=== PATIENT | female | born 1940 | race Caucasian/White ===

== ENCOUNTER 2024-11-24 13:46 | Inpatient (IN) | payer MEDICARE ==
[~2024-11-24] VITALS: Ht 154.9 cm; Wt 70.0 kg
[~2024-11-24 13:46] MED LIST: ALEN10TA27 PO; AMI200T PO; AMLO5TAB5 PO; APIX2.5T PO; ATEN50TA41 PO; CLOP-32 PO; EZET10TA6 PO; FERR324T4 PO; FURO-149 PO; IPRA3AMP9 NEB; LISI-642 PO; MULT-1085 PO; PANT40TA54 PO; POTA-207 PO; ROSU40TA PO; SPIR25TA5 PO; SUCR1TAB PO
[2024-11-24 14:35] LABS: BASOPHILS % (AUTO) 0.1 % (0-1); EOSINOPHILS % (AUTO) 0.4 % (0-6); HEMATOCRIT 23.2 % (35.0-45.0); HEMOGLOBIN 7.7 g/dl (12.0-16.0); LYMPHOCYTES # (AUTO) 1.6 X10'3 (1.1-4.8); LYMPHOCYTES % (AUTO) 18.9 % (21-51); MEAN CORPUSCULAR HEMOGLOBIN 30.1 PG (27.0-31.0); MEAN CORPUSCULAR HGB CONC 33.1 g/dL (33.0-36.5); NEUTROPHILS # (AUTO) 5.7 X10'3 (1.8-7.7); NEUTROPHILS % (AUTO) 68.6 % (42-75); PLATELET COUNT 181 X10'3 (140-440); RED BLOOD COUNT 2.55 X10'6 (4.20-5.60); RED CELL DISTRIBUTION WIDTH 20.7 % (11.5-14.5); WHITE BLOOD COUNT 8.3 X10'3 (4.5-11.0)
[2024-11-24 14:55] LABS: ALANINE AMINOTRANSFERASE 24 U/L (12-78); ALBUMIN 3.3 G/DL (3.4-5.0); ALBUMIN/GLOBULIN RATIO 1.2 (1.1-1.5); ALKALINE PHOSPHATASE 54 IU/L (46-116); ANION GAP 7 (8-16); ANISOCYTOSIS 3+; ASPARTATE AMINO TRANSFERASE 17 U/L (10-37); BILIRUBIN,TOTAL 0.7 MG/DL (0.1-1.0); BLOOD UREA NITROGEN 60 MG/DL (7-18); BUN/CREATININE RATIO 20.4 (10.0-20.0); CALCIUM 9.2 MG/DL (8.5-10.1); CHLORIDE 100 MMOL/L (99-107); CREATININE 2.94 MG/DL (0.40-0.90); GLUCOSE 111 MG/DL (70-104); PLATELET ESTIMATE NORMAL; POTASSIUM 4.9 MMOL/L (3.5-5.1); SODIUM 133 MMOL/L (135-145); TOTAL CARBON DIOXIDE 25.8 MMOL/L (24-32); eCRCL 11 ML/MIN; eGFR 15 ML/MIN
[2024-11-24 14:57] LABS: TEAR DROP CELLS FEW
[2024-11-24 14:58] LABS: ROULEAUX 1+
[2024-11-24 15:05] LABS: PRO BRAIN NATRIURETIC PEPTIDE 8786 PG/ML (0-450)
[2024-11-24] MEDS: normal saline 1000ML IV soln IVB ONE (17:16)
[2024-11-24] MEDS: ipratropium/albuterol 3ml nebule NEB ONE (17:16)
[2024-11-24 17:18] VITALS: PULSE 65; RESP 19; O2SAT 89
[2024-11-24 17:25] VITALS: PULSE 70; RESP 19; O2SAT 95
[2024-11-24] MEDS ORDERED: pantoprazole 40mg IV 80 MG in normal saline 100ml IV soln 100 ML IV ONE (17:55)
[2024-11-24] MEDS: pantoprazole 40 MG vial IV ONE (18:17)
[2024-11-24 18:27] LABS: APTT 27 SECONDS (22-32); INR 1.2 INR; PROTHROMBIN TIME 11.8 SECONDS (9.0-12.0)
[2024-11-24] MEDS ORDERED: magnesium sulf-water 4G/100mL 100 ML IV PRN (19:20)
[2024-11-24] MEDS ORDERED: acetaminophen 325mg tablet PO PRN (19:20)
[2024-11-24] MEDS ORDERED: magnesium hydroxide 30ml (MOM) UD suspension PO PRN (19:20)
[2024-11-24] MEDS ORDERED: magnesium Cl slow-release 64mg tablet PO PRN (19:20)
[2024-11-24] MEDS ORDERED: magnesium sulf-water 2g/50mL 50 ML IV PRN (19:20)
[2024-11-24] MEDS ORDERED: ondansetron/PF 4mg/2ml inj IV PRN (19:20)
[2024-11-24] MEDS ORDERED: potassium Cl 20 mEq SR tablet PO PRN ×2 (19:20)
[2024-11-24] MEDS ORDERED: potassium Cl 40MEQ/1/2NS 520ml 520 ML IV PRN (19:20)
[2024-11-24 20:47] LABS: OCCULT BLOOD STOOL POSITIVE (Neg)
[2024-11-24] MEDS: pantoprazole 40MG/NS 100ML BAG 100 ML IV SCH (21:00)
[2024-11-24 21:03] VITALS: BP 85/62; PULSE 81; RESP 34; TEMP 97.8
[2024-11-24] MEDS: normal saline 1000ml 1,000 ML IV SCH (21:07)
[2024-11-24] MEDS: docusate sod 100mg capsule PO SCH (21:07)
[2024-11-24] MEDS: K and/or MAG REPLACEMENT MC SCH (21:07)
[2024-11-24 21:15] VITALS: BP 107/45; PULSE 81; RESP 27; TEMP 97.6
[2024-11-24 21:40] VITALS: BP 134/38; PULSE 82; RESP 20; TEMP 98.4; O2SAT 92
[2024-11-24 22:43] VITALS: RESP 20; O2SAT 92
[2024-11-24] MEDS ORDERED: ipratropium/albuterol 3ml nebule NEB PRN (23:50)
[2024-11-24 23:57] LABS: HEMATOCRIT 28.3 % (35.0-45.0); HEMOGLOBIN 9.9 g/dl (12.0-16.0); MEAN CORPUSCULAR HGB CONC 34.8 g/dL (33.0-36.5); MEAN CORPUSCULAR VOLUME 89.1 FL (78-98); MEAN PLATELET VOLUME 7.9 FL (7.4-10.4); PLATELET COUNT 223 X10'3 (140-440); RED BLOOD COUNT 3.18 X10'6 (4.20-5.60); RED CELL DISTRIBUTION WIDTH 20.1 % (11.5-14.5)
[2024-11-25] VITALS (38 sets, daily range): BP systolic 73–143; BP diastolic 32–77; PULSE 66–87; RESP 15–40; TEMP 97–99.6; O2SAT 88–100
[2024-11-25 07:02] LABS: BASOPHILS % (AUTO) 0.3 % (0-1); EOSINOPHILS % (AUTO) 0.3 % (0-6); HEMATOCRIT 25.3 % (35.0-45.0); HEMOGLOBIN 8.6 g/dl (12.0-16.0); LYMPHOCYTES # (AUTO) 1.5 X10'3 (1.1-4.8); MEAN CORPUSCULAR HEMOGLOBIN 30.6 PG (27.0-31.0); MEAN CORPUSCULAR HGB CONC 33.9 g/dL (33.0-36.5); MEAN CORPUSCULAR VOLUME 90.3 FL (78-98); MEAN PLATELET VOLUME 7.9 FL (7.4-10.4); MONOCYTES % (AUTO) 9.7 % (2-12); NEUTROPHILS # (AUTO) 7.8 X10'3 (1.8-7.7); NEUTROPHILS % (AUTO) 75.7 % (42-75); PLATELET COUNT 168 X10'3 (140-440); RED CELL DISTRIBUTION WIDTH 19.8 % (11.5-14.5); WHITE BLOOD COUNT 10.4 X10'3 (4.5-11.0)
[2024-11-25 07:24] LABS: ALANINE AMINOTRANSFERASE 15 U/L (12-78); ALKALINE PHOSPHATASE 51 IU/L (46-116); ANION GAP 10 (8-16); ASPARTATE AMINO TRANSFERASE 14 U/L (10-37); BLOOD UREA NITROGEN 61 MG/DL (7-18); BUN/CREATININE RATIO 21.9 (10.0-20.0); CALCIUM 8.9 MG/DL (8.5-10.1); CHLORIDE 104 MMOL/L (99-107); CREATININE 2.79 MG/DL (0.40-0.90); GLUCOSE 114 MG/DL (70-104); MAGNESIUM 2.4 MG/DL (1.5-2.4); POTASSIUM 4.8 MMOL/L (3.5-5.1); SODIUM 136 MMOL/L (135-145); TOTAL CARBON DIOXIDE 22.5 MMOL/L (24-32); TOTAL PROTEIN 5.9 G/DL (6.4-8.2); eCRCL 11 ML/MIN; eGFR 16 ML/MIN
[2024-11-25] MEDS: normal saline 1000ml 1,000 ML IV SCH (08:00)
[2024-11-25 12:31] LABS: HEMATOCRIT 27.6 % (35.0-45.0); HEMOGLOBIN 9.2 g/dl (12.0-16.0); MEAN CORPUSCULAR HEMOGLOBIN 30.3 PG (27.0-31.0); MEAN CORPUSCULAR HGB CONC 33.2 g/dL (33.0-36.5); MEAN CORPUSCULAR VOLUME 91.4 FL (78-98); MEAN PLATELET VOLUME 7.9 FL (7.4-10.4); PLATELET COUNT 162 X10'3 (140-440); RED BLOOD COUNT 3.02 X10'6 (4.20-5.60); RED CELL DISTRIBUTION WIDTH 20.3 % (11.5-14.5); WHITE BLOOD COUNT 13.7 X10'3 (4.5-11.0)
[2024-11-25] MEDS: amLODIPine 5mg tablet PO SCH (13:39)
[2024-11-25] MEDS: atenolol 25mg tablet PO SCH (13:40)
[2024-11-25] MEDS ORDERED: LIDOcaine 2% Viscous 15ml cup ONE (15:07)
[2024-11-25] MEDS ORDERED: fentaNYL/PF 50MCG/1 ML 2ML syringe ONE (15:13)
[2024-11-25] MEDS ORDERED: MIDAZolam 1 MG/ML 5ML VIAL ONE (15:13)
[2024-11-25] MEDS ORDERED: simethicone 40mg/0.6ml oral drops 30ml ONE (15:20)
[2024-11-25] MEDS: furosemide 20 MG/2 ML vial IV ONE (16:54)
[2024-11-25 17:15] LABS: ABG BASE EXCESS -5.3 mmol/L (-2.0-3.0); ABG PCO2 (T) 27.7 mmHg (32.0-45.0); ABG PH (T) 7.432 (7.350-7.450); FCOHb 0.5 % (0.5-1.5); FMetHb 0.3 % (0.0-1.5); FO2Hb 97.2 % (94.0-98.0); MODE MASK - BIPAP; PATIENT TEMPERATURE 37.4; RESPIRATORY RATE 10 b/min; TIDAL VOLUME 520 mL; TOTAL HEMOGLOBIN 9.2 G/dl (12.0-16.0)
[2024-11-25 19:21] LABS: HEMATOCRIT 24.9 % (35.0-45.0); HEMOGLOBIN 8.3 g/dl (12.0-16.0); MEAN CORPUSCULAR HEMOGLOBIN 30.2 PG (27.0-31.0); MEAN CORPUSCULAR HGB CONC 33.5 g/dL (33.0-36.5); MEAN CORPUSCULAR VOLUME 90.3 FL (78-98); MEAN PLATELET VOLUME 7.9 FL (7.4-10.4); PLATELET COUNT 176 X10'3 (140-440); RED BLOOD COUNT 2.76 X10'6 (4.20-5.60); RED CELL DISTRIBUTION WIDTH 20.2 % (11.5-14.5); WHITE BLOOD COUNT 11.3 X10'3 (4.5-11.0)
[2024-11-25] MEDS: CefTRIAXone/D5W-Rocephin 1gm 50 ML IV SCH (23:50)
[2024-11-25 23:55] LABS: HEMOGLOBIN 7.8 g/dl (12.0-16.0); MEAN CORPUSCULAR HEMOGLOBIN 30.5 PG (27.0-31.0); MEAN CORPUSCULAR HGB CONC 33.7 g/dL (33.0-36.5); MEAN CORPUSCULAR VOLUME 90.5 FL (78-98); MEAN PLATELET VOLUME 7.9 FL (7.4-10.4); PLATELET COUNT 155 X10'3 (140-440); RED BLOOD COUNT 2.55 X10'6 (4.20-5.60); RED CELL DISTRIBUTION WIDTH 19.8 % (11.5-14.5); WHITE BLOOD COUNT 7.6 X10'3 (4.5-11.0)
[2024-11-26] VITALS (33 sets, daily range): BP systolic 85–135; BP diastolic 40–65; PULSE 63–83; RESP 15–30; TEMP 97.1–97.8; O2SAT 87–100
[2024-11-26] MEDS: azithromycin/NS 500mg/250ml 250 ML IV SCH (01:22)
[2024-11-26 06:59] LABS: BASOPHILS % (AUTO) 0.4 % (0-1); EOSINOPHILS # (AUTO) 0.3 X10'3 (0-0.9); EOSINOPHILS % (AUTO) 2.5 % (0-6); HEMATOCRIT 29.6 % (35.0-45.0); HEMOGLOBIN 9.8 g/dl (12.0-16.0); LYMPHOCYTES # (AUTO) 1.5 X10'3 (1.1-4.8); LYMPHOCYTES % (AUTO) 12.2 % (21-51); MEAN CORPUSCULAR HEMOGLOBIN 30.8 PG (27.0-31.0); MEAN CORPUSCULAR HGB CONC 33.2 g/dL (33.0-36.5); MEAN CORPUSCULAR VOLUME 92.8 FL (78-98); MEAN PLATELET VOLUME 8.1 FL (7.4-10.4); MONOCYTES # (AUTO) 1.3 X10'3 (0-0.9); MONOCYTES % (AUTO) 10.8 % (2-12); NEUTROPHILS # (AUTO) 9.1 X10'3 (1.8-7.7); NEUTROPHILS % (AUTO) 74.1 % (42-75); PLATELET COUNT 158 X10'3 (140-440); RED BLOOD COUNT 3.19 X10'6 (4.20-5.60); RED CELL DISTRIBUTION WIDTH 18.4 % (11.5-14.5); WHITE BLOOD COUNT 12.3 X10'3 (4.5-11.0)
[2024-11-26 07:16] LABS: ALANINE AMINOTRANSFERASE 11 U/L (12-78); ALBUMIN 2.9 G/DL (3.4-5.0); ALBUMIN/GLOBULIN RATIO 0.8 (1.1-1.5); ALKALINE PHOSPHATASE 52 IU/L (46-116); ANION GAP 14 (8-16); ASPARTATE AMINO TRANSFERASE 19 U/L (10-37); BILIRUBIN,TOTAL 1.4 MG/DL (0.1-1.0); BLOOD UREA NITROGEN 57 MG/DL (7-18); BUN/CREATININE RATIO 22.5 (10.0-20.0); CALCIUM 8.7 MG/DL (8.5-10.1); CHLORIDE 105 MMOL/L (99-107); CREATININE 2.53 MG/DL (0.40-0.90); GLUCOSE 92 MG/DL (70-104); MAGNESIUM 2.5 MG/DL (1.5-2.4); POTASSIUM 4.4 MMOL/L (3.5-5.1); SODIUM 140 MMOL/L (135-145); TOTAL CARBON DIOXIDE 21.3 MMOL/L (24-32); TOTAL PROTEIN 6.4 G/DL (6.4-8.2); eCRCL 12 ML/MIN; eGFR 18 ML/MIN
[2024-11-26] MEDS ORDERED: furosemide 40mg tablet PO SCH (08:00)
[2024-11-26] MEDS ORDERED: atorvastatin 20mg tablet PO SCH (08:00)
[2024-11-26] MEDS: furosemide 20 MG/2 ML vial IV SCH (09:14)
[2024-11-26] MEDS ORDERED: dextrose 50%-water 50ml dispensing syringe IV PRN ×2 (09:35→22:30)
[2024-11-26] MEDS ORDERED: glucagon, human recombinant 1mg kit SUBCUT PRN ×2 (09:35→22:30)
[2024-11-26] MEDS: dextrose 50%-water 50ml dispensing syringe IV PRN (09:47)
[2024-11-26 10:38] LABS: BILIRUBIN,URINE NEGATIVE (Neg); CLARITY,URINE CLEAR (Clear); COLOR,URINE YELLOW (Yellow); GLUCOSE, URINE NEGATIVE (Neg); KETONES,URINE NEGATIVE (Neg); LEUKOCYTE ESTERASE ,URINE NEGATIVE (Neg); NITRITES, URINE NEGATIVE (Neg); OCCULT BLOOD,URINE NEGATIVE (Neg); PROTEIN,URINE NEGATIVE (Neg); UROBILINOGEN,URINE 0.2 E.U/dL (0.2-1.0)
[2024-11-26 10:41] LABS: UA COLLECTION TYPE STRAIGHT CATH
[2024-11-26] MEDS: ipratropium/albuterol 3ml nebule NEB SCH (12:15)
[2024-11-26 12:17] LABS: HEMATOCRIT 28.6 % (35.0-45.0); HEMOGLOBIN 9.8 g/dl (12.0-16.0); MEAN CORPUSCULAR HGB CONC 34.2 g/dL (33.0-36.5); MEAN CORPUSCULAR VOLUME 90.6 FL (78-98); MEAN PLATELET VOLUME 8.4 FL (7.4-10.4); PLATELET COUNT 155 X10'3 (140-440); RED BLOOD COUNT 3.15 X10'6 (4.20-5.60); RED CELL DISTRIBUTION WIDTH 18.6 % (11.5-14.5); WHITE BLOOD COUNT 9.8 X10'3 (4.5-11.0)
[2024-11-26] MEDS: methylPREDNISolone sod succ/PF 40mg inj. IV SCH (12:56)
[2024-11-26] MEDS: DOBUTamine-DoBUTrex 500mg/D5W 250 ML IV SCH (14:55)
[2024-11-26] MEDS: furosemide 20 MG/2 ML vial IV ONE (14:56)
[2024-11-26] MEDS: pantoprazole 40 MG vial IV SCH (20:58)
[2024-11-26] MEDS ORDERED: DEXTROSE 15 GM of carb/4 tabs (each vial/BOTTLE has 4 tablets) PO PRN ×2 (22:30)
[2024-11-26] MEDS: INSULIN LISPRO 100 UNIT/ML INSULN.PEN MULTI-DOSE SQ SCH (23:34)
[2024-11-27] VITALS (28 sets, daily range): BP systolic 75–124; BP diastolic 39–82; PULSE 71–99; RESP 18–38; TEMP 97–97.8; O2SAT 92–97
[2024-11-27 00:01] LABS: HEMOGLOBIN 8.5 g/dl (12.0-16.0); MEAN CORPUSCULAR HEMOGLOBIN 31.2 PG (27.0-31.0); RED BLOOD COUNT 2.73 X10'6 (4.20-5.60); RED CELL DISTRIBUTION WIDTH 17.8 % (11.5-14.5)
[2024-11-27 00:05] LABS: HEMATOCRIT 24.7 % (35.0-45.0); MEAN CORPUSCULAR HGB CONC 34.5 g/dL (33.0-36.5); MEAN CORPUSCULAR VOLUME 90.5 FL (78-98); MEAN PLATELET VOLUME 8.1 FL (7.4-10.4); PLATELET COUNT 143 X10'3 (140-440); WHITE BLOOD COUNT 4.5 X10'3 (4.5-11.0)
[2024-11-27 04:37] LABS: BASOPHILS % (AUTO) 0.1 % (0-1); EOSINOPHILS % (AUTO) 0 % (0-6); HEMATOCRIT 23.8 % (35.0-45.0); HEMOGLOBIN 8.1 g/dl (12.0-16.0); LYMPHOCYTES # (AUTO) 0.4 X10'3 (1.1-4.8); LYMPHOCYTES % (AUTO) 9.9 % (21-51); MEAN CORPUSCULAR HEMOGLOBIN 31.1 PG (27.0-31.0); MEAN CORPUSCULAR HGB CONC 33.9 g/dL (33.0-36.5); MEAN CORPUSCULAR VOLUME 91.7 FL (78-98); MEAN PLATELET VOLUME 8.2 FL (7.4-10.4); MONOCYTES # (AUTO) 0.1 X10'3 (0-0.9); MONOCYTES % (AUTO) 2.7 % (2-12); NEUTROPHILS # (AUTO) 3.5 X10'3 (1.8-7.7); NEUTROPHILS % (AUTO) 87.3 % (42-75); PLATELET COUNT 132 X10'3 (140-440); RED CELL DISTRIBUTION WIDTH 17.9 % (11.5-14.5); WHITE BLOOD COUNT 4.1 X10'3 (4.5-11.0)
[2024-11-27 04:46] LABS: ALANINE AMINOTRANSFERASE 16 U/L (12-78); ALBUMIN 2.6 G/DL (3.4-5.0); ALBUMIN/GLOBULIN RATIO 0.9 (1.1-1.5); ALKALINE PHOSPHATASE 46 IU/L (46-116); ANION GAP 11 (8-16); ASPARTATE AMINO TRANSFERASE 13 U/L (10-37); BILIRUBIN,TOTAL 0.7 MG/DL (0.1-1.0); BLOOD UREA NITROGEN 55 MG/DL (7-18); CALCIUM 8.3 MG/DL (8.5-10.1); CHLORIDE 109 MMOL/L (99-107); GLUCOSE 185 MG/DL (70-104); MAGNESIUM 2.1 MG/DL (1.5-2.4); POTASSIUM 4.1 MMOL/L (3.5-5.1); SODIUM 141 MMOL/L (135-145); TOTAL PROTEIN 5.5 G/DL (6.4-8.2); eCRCL 12 ML/MIN; eGFR 18 ML/MIN
[2024-11-27] MEDS: normal saline 500ml IV soln 500 ML IV SCH (05:09)
[2024-11-27] MEDS: normal saline 500ml IV soln 500 ML IV ONE (05:44)
[2024-11-27] MEDS: furosemide 20 MG/2 ML vial IV SCH (08:51)
[2024-11-27] MEDS: DOBUTamine-DoBUTrex 500mg/D5W 250 ML IV SCH (11:16)
[2024-11-28] VITALS (27 sets, daily range): BP systolic 81–156; BP diastolic 40–91; PULSE 79–98; RESP 0–27; TEMP 97.2–98.1; O2SAT 83–98
[2024-11-28 06:06] LABS: EOSINOPHILS % (AUTO) 0.2 % (0-6); HEMOGLOBIN 8.1 g/dl (12.0-16.0); LYMPHOCYTES # (AUTO) 0.3 X10'3 (1.1-4.8); MONOCYTES # (AUTO) 0.3 X10'3 (0-0.9)
[2024-11-28 06:08] LABS: BASOPHILS % (AUTO) 0.4 % (0-1); HEMATOCRIT 24.1 % (35.0-45.0); LYMPHOCYTES % (AUTO) 3.8 % (21-51); MEAN CORPUSCULAR HEMOGLOBIN 30.5 PG (27.0-31.0); MEAN CORPUSCULAR HGB CONC 33.5 g/dL (33.0-36.5); MEAN CORPUSCULAR VOLUME 91.1 FL (78-98); MEAN PLATELET VOLUME 8.8 FL (7.4-10.4); MONOCYTES % (AUTO) 3.7 % (2-12); NEUTROPHILS # (AUTO) 7.9 X10'3 (1.8-7.7); NEUTROPHILS % (AUTO) 91.9 % (42-75); PLATELET COUNT 192 X10'3 (140-440); RED BLOOD COUNT 2.64 X10'6 (4.20-5.60); RED CELL DISTRIBUTION WIDTH 17.8 % (11.5-14.5); WHITE BLOOD COUNT 8.6 X10'3 (4.5-11.0)
[2024-11-28 06:26] LABS: ALANINE AMINOTRANSFERASE 19 U/L (12-78); ALBUMIN 2.8 G/DL (3.4-5.0); ALKALINE PHOSPHATASE 42 IU/L (46-116); ANION GAP 13 (8-16); ASPARTATE AMINO TRANSFERASE 18 U/L (10-37); BILIRUBIN,TOTAL 0.5 MG/DL (0.1-1.0); BLOOD UREA NITROGEN 53 MG/DL (7-18); BUN/CREATININE RATIO 21.2 (10.0-20.0); CALCIUM 8.1 MG/DL (8.5-10.1); CHLORIDE 105 MMOL/L (99-107); GLUCOSE 183 MG/DL (70-104); MAGNESIUM 2.1 MG/DL (1.5-2.4); SODIUM 138 MMOL/L (135-145); TOTAL PROTEIN 5.5 G/DL (6.4-8.2); eCRCL 12 ML/MIN; eGFR 18 ML/MIN
[2024-11-28] MEDS: furosemide 40mg/4ml inj IV SCH (07:27)
[2024-11-28] MEDS: DOBUTamine-DoBUTrex 500mg/D5W 250 ML IV SCH (14:47)
[2024-11-29] VITALS (14 sets, daily range): BP systolic 94–173; BP diastolic 37–82; PULSE 58–96; RESP 0–28; TEMP 97.1–97.7; O2SAT 90–97
[2024-11-29 06:45] LABS: BASOPHILS % (AUTO) 0 % (0-1); EOSINOPHILS % (AUTO) 0 % (0-6); HEMATOCRIT 24.4 % (35.0-45.0); HEMOGLOBIN 8.1 g/dl (12.0-16.0); LYMPHOCYTES # (AUTO) 0.3 X10'3 (1.1-4.8); LYMPHOCYTES % (AUTO) 3.7 % (21-51); MEAN CORPUSCULAR HEMOGLOBIN 30.5 PG (27.0-31.0); MEAN CORPUSCULAR HGB CONC 33.4 g/dL (33.0-36.5); MEAN CORPUSCULAR VOLUME 91.1 FL (78-98); MEAN PLATELET VOLUME 8.5 FL (7.4-10.4); MONOCYTES # (AUTO) 0.2 X10'3 (0-0.9); MONOCYTES % (AUTO) 3.5 % (2-12); NEUTROPHILS # (AUTO) 6.4 X10'3 (1.8-7.7); NEUTROPHILS % (AUTO) 92.8 % (42-75); PLATELET COUNT 163 X10'3 (140-440); RED BLOOD COUNT 2.68 X10'6 (4.20-5.60); RED CELL DISTRIBUTION WIDTH 17.4 % (11.5-14.5); WHITE BLOOD COUNT 6.9 X10'3 (4.5-11.0)
[2024-11-29 07:16] LABS: ALANINE AMINOTRANSFERASE 21 U/L (12-78); ALBUMIN 2.9 G/DL (3.4-5.0); ALBUMIN/GLOBULIN RATIO 1.1 (1.1-1.5); ALKALINE PHOSPHATASE 43 IU/L (46-116); ANION GAP 15 (8-16); ASPARTATE AMINO TRANSFERASE 11 U/L (10-37); BILIRUBIN,TOTAL 0.3 MG/DL (0.1-1.0); BLOOD UREA NITROGEN 52 MG/DL (7-18); BUN/CREATININE RATIO 20.9 (10.0-20.0); CALCIUM 8.1 MG/DL (8.5-10.1); CHLORIDE 104 MMOL/L (99-107); CREATININE 2.49 MG/DL (0.40-0.90); GLUCOSE 158 MG/DL (70-104); SODIUM 138 MMOL/L (135-145); TOTAL CARBON DIOXIDE 19.3 MMOL/L (24-32); TOTAL PROTEIN 5.6 G/DL (6.4-8.2); eCRCL 12 ML/MIN; eGFR 18 ML/MIN
[2024-11-29 08:25] LABS: CHOL/HDL RATIO 2.1 (0.00-4.99); CHOLESTEROL 131 MG/DL (0-200); HDL CHOLESTEROL 61 MG/DL (35-60); LDL CHOLESTEROL 51 MG/DL (50-100); TRIGLYCERIDES 79 MG/DL (20-135)
[2024-11-29] MEDS ORDERED: ferrous sulfate 325mg tablet PO SCH (17:30)
[2024-11-30] MEDS ORDERED: PRED20TA PO (03:59)
== END 2024-11-29 15:06 | DRG 377 ==
LOC: ER 13:46 → ED HOLD 18:20 → PCU 3S 21:40
PROVIDERS: ADMIT Family Medicine; ATTEND Family Medicine
PROC: 30233N1 Transfusion of Nonautologous Red Blood Cells into Peripheral Vein, Percutaneous Approach (ICD-10-PCS; principal; 2024-11-24)
PROC: 0W3P8ZZ Control Bleeding in Gastrointestinal Tract, Via Natural or Artificial Opening Endoscopic (ICD-10-PCS; 2024-11-25)
PROC: XW0G886 Introduction of Mineral-based Topical Hemostatic Agent into Upper GI, Via Natural or Artificial Opening Endoscopic, New Technology Group 6 (ICD-10-PCS; 2024-11-25)
PROC: 5A0935A Assistance with Respiratory Ventilation, Less than 24 Consecutive Hours, High Flow/Velocity Cannula (ICD-10-PCS; 2024-11-25)
PROC: 5A09357 Assistance with Respiratory Ventilation, Less than 24 Consecutive Hours, Continuous Positive Airway Pressure (ICD-10-PCS; 2024-11-25)
PROC: 5A0935A Assistance with Respiratory Ventilation, Less than 24 Consecutive Hours, High Flow/Velocity Cannula (ICD-10-PCS; 2024-11-26)
PROC: 5A09357 Assistance with Respiratory Ventilation, Less than 24 Consecutive Hours, Continuous Positive Airway Pressure (ICD-10-PCS; 2024-11-26)
PROC: 5A0935A Assistance with Respiratory Ventilation, Less than 24 Consecutive Hours, High Flow/Velocity Cannula (ICD-10-PCS; 2024-11-27)
PROC: 5A0935A Assistance with Respiratory Ventilation, Less than 24 Consecutive Hours, High Flow/Velocity Cannula (ICD-10-PCS; 2024-11-28)
DX: K25.4 Chronic or unspecified gastric ulcer with hemorrhage (principal); I50.33 Acute on chronic diastolic (congestive) heart failure; J18.9 Pneumonia, unspecified organism; J96.00 Acute respiratory failure, unspecified whether with hypoxia or hypercapnia; N17.9 Acute kidney failure, unspecified; N18.4 Chronic kidney disease, stage 4 (severe); I13.0 Hypertensive heart and chronic kidney disease with heart failure and stage 1 through stage 4 chronic kidney disease, or unspecified chronic kidney disease; I27.20 Pulmonary hypertension, unspecified; I25.10 Atherosclerotic heart disease of native coronary artery without angina pectoris; Z96.653 Presence of artificial knee joint, bilateral; I48.0 Paroxysmal atrial fibrillation; I08.3 Combined rheumatic disorders of mitral, aortic and tricuspid valves; E78.5 Hyperlipidemia, unspecified; T50.995A Adverse effect of other drugs, medicaments and biological substances, initial encounter; D64.9 Anemia, unspecified; K44.9 Diaphragmatic hernia without obstruction or gangrene; K21.00 Gastro-esophageal reflux disease with esophagitis, without bleeding; Z79.01 Long term (current) use of anticoagulants; Z79.899 Other long term (current) drug therapy; Y92.89 Other specified places as the place of occurrence of the external cause
CPT/HCPCS: 36415; 36430; 36600; 43255; 71045; 80053; 80061; 81003; 82272; 82803; 82948; 83605; 83735; 83880; 84145; 84484; 85008; 85018; 85025; 85027; 85610; 85730; 86885; 86900; 86901; 86920; 87040; 87081; 93005; 93970; 94640; 94660; 94760; 96361; 96374; 97116; 97161; 97530; 99152; 99291; A4615; C1052; C1758; G0378; J0456; J0696; J1250; J1815; J1938; J1940; J2250; J2470; J2919; J3010; J3490; J7030; J7040; P9016

== ENCOUNTER 2025-06-27 15:26 | Emergency (ER) | payer MEDICARE ==
[~2025-06-27] VITALS: Ht 154.9 cm; Wt 62.0 kg
[~2025-06-27 15:26] MED LIST changes: -AMI200T PO; -AMLO5TAB5 PO; -APIX2.5T PO; -ATEN50TA41 PO; -CLOP-32 PO; +COR3.125T PO; -EZET10TA6 PO; +POTA-205 PO; -SPIR25TA5 PO
[2025-06-27 15:32] VITALS: TEMP 97.7
--- NOTE | 2025-06-27 15:42 | ELECTROCARDIOGRAPH REPORT ---
[facility] Test Date: 2025-06-27 Test Time: 15:39:01 Pat Name: BECKA FERREIRA Department: [facility]- Patient ID: [id number] Room: Gender: F Pelts Skinner: : 1940 Requested By: CLAY EDMOND Order Number: [id number] Reading MD: Dr. Clay Edmond Measurements Intervals [place] Rate: 64 P: 82 [place]: 179 QRS: 51 QRSD: 174 T: 78 QT: 432 QTc: 446 Interpretive Statements Sinus rhythm Atrial premature complexes Nonspecific intraventricular conduction delay Anteroseptal infarct, old Baseline wander in lead(s) V6 Electronically Signed On 06-27-2025 17:15:[address] Clay Edmond Please click the below link to view image of tracing.
[2025-06-27 15:54] LABS: MEAN PLATELET VOLUME 9.0 FL (7.4-10.4); RED CELL DISTRIBUTION WIDTH 15.5 % (11.5-14.5)
[2025-06-27 16:14] LABS: CREATININE 2.32 MG/DL (0.40-0.90); PRO BRAIN NATRIURETIC PEPTIDE 1317 PG/ML (0-450); TOTAL CARBON DIOXIDE 29.0 MMOL/L (24-32); eCRCL 13 ML/MIN; eGFR 20 ML/MIN
--- NOTE | 2025-06-27 17:21 | RADIOLOGY REPORT ---
CT CT HEAD [facility] DATE: 06/27/2025 04:50 PM COMPARISON: CT CT HEAD on DOS: 11/27/23 TECHNIQUE: CT of the head without intravenous contrast. RADIATION DOSE: CTDIvol: 57 mGy, DLP: 1074 mGy*cm FINDINGS: There is no intracranial hemorrhage. There is no extra-axial fluid, mass, mass effect or midline shift. The ventricles are midline and normal in size. Basilar cisterns are patent. There is gjbe-we-aurrzuba periventricular and subcortical white matter chronic microvascular ischemic changes. Mild global cerebral volume loss. Right frontal scalp hematoma. The paranasal sinuses and mastoids are well-pneumatized. Imaged portion of the orbits are unremarkable. IMPRESSION: No intracranial hemorrhage or mass effect. Flxi-yo-qfuzuhfr chronic microvascular ischemic changes. Mild global cerebral volume loss. Right frontal scalp hematoma.
--- NOTE | 2025-06-27 17:35 | RADIOLOGY REPORT ---
[facility]: CT axial images of the cervical spine, facial bones are obtained without contrast. Coronal and sagittal reformats were obtained. Radiation Dose Information: CTDI volume is 21 mGy. Dose-length product is 441 mGy*cm Comparison: None FINDINGS: The cervical vertebral body heights are maintained. Straightening of normal cervical spine curvature. 3 mm anterolisthesis C3 upon C4.3 mm anterolisthesis C6 upon C7.3 mm anterolisthesis C7 upon T1.. There is severe multilevel disc space narrowing. No prevertebral edema. Facet articulations demonstrate moderate to severe facet hypertrophic changes. The atlantooccipital, atlantoaxial articulations are intact. Pulmonary emphysematous changes. 6 mm left upper lobe pulmonary solid nodule. Carotid atherosclerotic disease. Subcentimeter bilateral thyroid nodules. Mastoids well pneumatized. Paranasal sinuses well pneumatized. No facial region fracture identified. Frontal scalp/ right supraorbital hematoma. No retrobulbar hematoma. IMPRESSION: Severe cervical degenerative disc disease. Moderate to severe cervical facet hypertrophic changes 6 mm left upper lobe pulmonary solid nodule. Recommend follow-up per Fleischner society criteria. Right frontal scalp/ right supraorbital hematoma. No facial region Fracture identified.
--- NOTE | 2025-06-27 18:15 | Physician Documentation ---
History of Present Illness ~ Chief Complaint: Mechanical Fall Stated Complaint: FALL Time Seen by MD: 16:08 Mode of Arrival: EMS, Stretcher HPI 82-year-old female brought to the emergency department status post mechanical fall without loss of consciousness yet striking her head and face. Believes patient tripped over her oxygen cord. There was no loss of consciousness and there has been no nausea or vomiting or blurred vision. She suffered bruising to the right forehead and to the right eye. She does wear glasses however did not cause lacerations. Secondary complaints of right shoulder and left knee pain. She is accompanied in the Emergency Department by family. Tetanus within 5 Years?: No Medication Reconciliation Allergies: Coded Allergies: gluten (Verified Allergy, Unknown, 06/27/25) Celiac disease Scheduled Alendronate Sodium (Alendronate Sodium), 1 TAB PO DAILY, (Reported) Carvedilol (Carvedilol), 1 TAB PO Q12H Ferrous Sulfate (Ferrous Sulfate), 1 TAB PO DAILY Furosemide (Lasix), 1 TAB PO DAILY, (Reported) Lisinopril* (Zestril*), 1 TAB PO DAILY, (Reported) Multivitamin (Multi Vitamin Daily), 1 TAB PO DAILY, (Reported) Pantoprazole Sodium (Pantoprazole Sodium), 40 MG PO BID Potassium Chloride (Potassium Chloride), 1 TAB PO DAILY Potassium Chloride* (K-Dur*), 1 TAB PO DAILY Rosuvastatin Calcium* (Crestor*), 1 TAB PO DAILY, (Reported) Sucralfate (Sucralfate), 1 TAB PO Q8H Scheduled PRN Ipratropium/Albuterol Sulfate (IPRAT-ALBUT 0.5-3(2.5) MG/3 ML nebule), 3 ML NEB Q4H PRN for SOB or wheezing Past Medical History Past Medical History: Atrial Fibrillation, Congestive Heart Failure Past Surgical History: no surgical history Patient History: FH: heart disease Alcohol Use: None Drug Use: none Lives In: SNF Review of Systems All Other Systems at this time: Reviewed and Negative Eyes: Reports: see HPI Musculoskeletal: Reports: see HPI Physical Exam Vital Signs: RN Vital Signs have been reviewed: Yes, Temperature: 97.7, Source: Oral, Heart Rate: 68, Respiratory Rate: 16, BP: 118/55, Pulse Oximetry: 96, Weight: 62.000 Oxygen Flow Rate: 0 General Appearance: alert, WD/WN, mild distress Head: ecchymosis (Right forehead right superior lateral and inferior orbit) Face: normal (No crepitus or subcutaneous air) Eye Lid: normal inspection Pupils/EOM/Fundus: PERRLA Ears: normal inspection Nose: normal inspection Mouth: normal inspection Neck: tenderness (Bilateral paraspinous muscles); No: spinous processes tender, tender midline Respiratory: normal breath sounds Chest: non-tender Cardiovascular: normal peripheral pulses Gastrointestinal: non-tender Pelvis: normal Skin: warm/dry, other (Ecchymosis to right forehead right eye right shoulder and left knee) Neurologic: oriented x4, fleet manager/dispatch II-XII nml as tested Motor / Sensory: no motor deficit, no sensory deficit Cerebellar function exam: normal Thoughts/Hallucinations: normal thought pattern Affect: appropriate Progress Results/Orders Results/Orders Orders - HEATH BRUCE PAC Ct Head (06/27/25 17:08) Ct Cervical Spine (06/27/25 17:08) Ct Facial Bones/Soft Tissue (06/27/25 17:08) Shoulder, Complete (Min 2 Vws) (06/27/25 17:20) Knee Limited (Ap/Lat) (06/27/25 17:20) Completed Orders - HEATH BRUCE PAC Ct Head (06/27/25 17:08) Ct Cervical Spine (06/27/25 17:08) Ct Facial Bones/Soft Tissue (06/27/25 17:08) Shoulder, Complete (Min 2 Vws) (06/27/25 17:20) Knee Limited (Ap/Lat) (06/27/25 17:20) Vital Signs 06/27/25 06/27/25 06/27/25 06/27/25 15:32 15:36 15:44 16:37 Temp 97.7 Pulse 73 68 65 Resp 16 16 16 16 B/P (MAP) 95/48 100/69 (79) 105/47 (66) Pulse Ox 96 95 96 O2 Flow Rate 0 0 0 06/27/25 06/27/25 17:54 18:50 Pulse 68 67 Resp 16 17 B/P (MAP) 118/55 (76) 121/59 (79) Pulse Ox 96 95 O2 Flow Rate 0 0 Laboratory Tests Test 06/27/25 15:47 06/27/25 17:30 White Blood Count 9.0 Red Blood Count 3.90 L Hemoglobin 11.1 L Hematocrit 33.0 L Mean Corpuscular Volume 84.5 Mean Corpuscular Hemoglobin 28.5 Mean Corpuscular Hemoglobin Concent 33.7 Red Cell Distribution Width 15.5 H Platelet Count 171 Mean Platelet Volume 9.0 Neutrophils (%) (Auto) 76.7 H Lymphocytes (%) (Auto) 15.1 L Monocytes (%) (Auto) 6.0 Eosinophils (%) (Auto) 2.1 Basophils (%) (Auto) 0.1 Neutrophils # (Auto) 6.9 Lymphocytes # (Auto) 1.4 Monocytes # (Auto) 0.5 Eosinophils # (Auto) 0.2 Basophils # (Auto) 0.0 CBC Comment Sodium Level 141 Potassium Level 4.1 Chloride Level 103 Carbon Dioxide Level 29.0 Anion Gap 9 Blood Urea Nitrogen 56 H Creatinine 2.32 H Estimated GFR/1.73 m2 20 BUN/Creatinine Ratio 24.1 H Glucose Level 203 H Calcium Level 9.0 Troponin I High Sensitivity 12 12 Pro-B-Type Natriuretic Peptide 1317 H Albumin 3.9 Chemistry Comments Troponin I High Sens Percent Delta 0 Troponin I Hi Sens Absolute Change 0 Medical Decision Making Additional information obtaine: family Findings 82-year-old female who used to be on Plavix some five months ago has a had a mechanical fall with head strike. Patient initially appears non concussed. She warrants CT imaging and x-ray imaging. CT imaging of the obtained resulted by radiologist. CT imaging reassuring. X-ray imaging without acute fracture or dislocation right shoulder and left knee. Discussed with the family aftercare treatment plan. Patient's to client and needing pain management at this point. She has been assessed several times remains neurovascularly intact without focal neuro deficits. She remains not concussed. Ecchymosis to the right forehead in the right eye, right shoulder and left knee prominent. Differential Dx:Considerations: Include: Closed head injury, Cardiac injury, Fracture(s), Intraabdominal injury, Pneumothorax, Cerebral contusion, Pulmonary contusion, Spine injury, Tracheal injury, Urological injury, Vascular injury, Abrasion(s), Contusion(s), Foreign body(s), Hematoma(s), Laceration(s), Encephalopathy, Other Departure Disposition: HOME / SELF CARE / HOMELESS Impression: Primary Impression: Closed head injury Qualified Codes: S09.90XA - Unspecified injury of head, initial encounter Additional Impressions: Facial trauma Qualified Codes: S09.93XA - Unspecified injury of face, initial encounter Shoulder injury Qualified Codes: S49.91XA - Unspecified injury of right shoulder and upper arm, initial encounter Condition: Improved Discharge Instructions: Fall Prevention in the Home, Adult, [id number] Additional Instructions: Today in the emergency department you had X-rays and CTs obtained which are reassuring. Please take Tylenol for discomfort. Make follow up appointment with the primary care physician and/or return to the emergency department as needed. Please enjoy Thanksgiving. Referrals: NO PRIMARY CARE PROVIDER (PCP) Education Educated: Patient Educated regarding: diagnosis, treatment, prognosis, need for follow up Signature Scribe Signature: . Attestation: . HEATH BRUCE PAC Jun 27, 2025 18:14
--- NOTE | 2025-06-27 18:17 | RADIOLOGY REPORT ---
CHEST RADIOGRAPH Indication: CP Technique: DI CHEST,SINGLE VIEW Comparison: None FINDINGS: The cardiac silhouette is unremarkable. The lungs demonstrate right lower lobe opacity measuring 2 cm. The pulmonary vasculature is unremarkable. There is no pleural effusion. There is no pneumothorax. Aortic atherosclerotic disease. IMPRESSION: 2 cm right lower lobe opacity. Recommend CT chest to further characterize.
--- NOTE | 2025-06-27 18:22 | RADIOLOGY REPORT ---
Indication: Fall LEFT Technique: DI KNEE LIMITED (AP/LAT)KNEE LTD Comparison: None FINDINGS/IMPRESSION: No radiographic evidence for acute fracture or dislocation. Left knee arthroplasty hardware and left femur intramedullary mary. No periprosthetic fracture is identified. No perihardware lucency seen within the visualized portion of the knee hardware components Small suprapatellar effusion. Prepatellar edema.
--- NOTE | 2025-06-27 18:23 | RADIOLOGY REPORT ---
Indication: Fall RIGHT Technique: DI SHOULDER, COMPLETE (MIN 2 VWS)SHOULDERCM Comparison: None FINDINGS/IMPRESSION: No radiographic evidence for acute fracture or dislocation. Narrowing of the subacromial interval which can be seen with impingement. Kkis-gn-kfxeulln degenerate changes of the right glenohumeral joint. Eeto-kh-jjofgezm degenerate changes right acromioclavicular joint. Calcific tendinosis Atherosclerotic calcification disease.
[2025-06-27 18:50] VITALS: BP 121/59; PULSE 67; RESP 17; O2SAT 95
== END 2025-06-27 18:48 | disposition home or self-care (01) ==
LOC: ER 15:27
DX: S05.11XA Contusion of eyeball and orbital tissues, right eye, initial encounter (principal); S49.91XA Unspecified injury of right shoulder and upper arm, initial encounter; I48.91 Unspecified atrial fibrillation; I25.2 Old myocardial infarction; I50.9 Heart failure, unspecified; Z88.8 Allergy status to other drugs, medicaments and biological substances; Z79.899 Other long term (current) drug therapy; W18.39XA Other fall on same level, initial encounter; Y93.89 Activity, other specified; Y92.89 Other specified places as the place of occurrence of the external cause; Y99.8 Other external cause status
CPT/HCPCS: 36415; 70450; 70486; 71045; 72125; 73030; 73560; 80048; 83880; 84484; 85025; 93005; 99285

== ENCOUNTER 2025-06-29 13:28 | Emergency (ER) | payer MEDICARE ==
[~2025-06-29] VITALS: Ht 154.9 cm; Wt 59.1 kg
[2025-06-29 13:32] VITALS: TEMP 97.6
[2025-06-29 14:14] LABS: MEAN PLATELET VOLUME 9.4 FL (7.4-10.4); RED CELL DISTRIBUTION WIDTH 15.7 % (11.5-14.5)
[2025-06-29 14:19] LABS: APTT 23 SECONDS (22-32); INR 1.0 INR
--- NOTE | 2025-06-29 14:19 | RADIOLOGY REPORT ---
CHEST RADIOGRAPH Indication: CP Technique: Single frontal view of the chest was obtained Comparison: DI CHEST,SINGLE VIEW on DOS: 06/27/25, DI CHEST,SINGLE VIEW on DOS: 11/29/24, DI CHEST,SINGLE VIEW on DOS: 11/26/24 FINDINGS: Lines and Tubes: None Lungs: No focal consolidation. Mild hyperinflation of the lungs. Mild interstitial prominence. Pleura: No effusion. No pneumothorax. Cardiomediastinal contours: Heart size is within normal limits [id number] atherosclerotic calcification and uncoiling of the aorta. Bones: No acute osseous abnormality. IMPRESSION: Hyperinflation of the lungs with mild interstitial prominence which may be from Senescent changes /emphysema.
[2025-06-29 14:27] LABS: CREATININE 2.39 MG/DL (0.40-0.90); PRO BRAIN NATRIURETIC PEPTIDE 1231 PG/ML (0-450); TOTAL CARBON DIOXIDE 27.5 MMOL/L (24-32); eCRCL 13 ML/MIN; eGFR 19 ML/MIN
--- NOTE | 2025-06-29 14:36 | Physician Documentation ---
History of Present Illness ~ Chief Complaint: Dizziness Stated Complaint: DIZZY Time Seen by MD: 13:40 Mode of Arrival: EMS HPI 85 year old female presented to the ED via EMS for concerns of dizziness and lightheadedness. She states that he has been dizzy, wobbly when she was sitting in the chair. She got up this morning, showered, got dressed and then was sitting in her chair when she started having the above symptoms. Denies loss of consciousness, denies nausea, vomiting, diarrhea or constipation. Does not have any symptoms of UTI. States that couple of weeks ago she had a similar episode. Blood pressure of the right arm is 155/58 on the left is 113/43. She uses a cane for walking. Couple of days ago she had a mechanical fall and had a bruise on the right eye. Does not use any blood pressure medications at home. Employee Communications Coordinator is Dr. Ramos. Medication Reconciliation Allergies: Coded Allergies: gluten (Verified Allergy, Unknown, 06/29/25) Celiac disease Scheduled Alendronate Sodium (Alendronate Sodium), 1 TAB PO DAILY, (Reported) Carvedilol (Carvedilol), 1 TAB PO Q12H Ferrous Sulfate (Ferrous Sulfate), 1 TAB PO DAILY Furosemide (Lasix), 1 TAB PO DAILY, (Reported) Lisinopril* (Zestril*), 1 TAB PO DAILY, (Reported) Multivitamin (Multi Vitamin Daily), 1 TAB PO DAILY, (Reported) Pantoprazole Sodium (Pantoprazole Sodium), 40 MG PO BID Potassium Chloride (Potassium Chloride), 1 TAB PO DAILY Potassium Chloride* (K-Dur*), 1 TAB PO DAILY Rosuvastatin Calcium* (Crestor*), 1 TAB PO DAILY, (Reported) Sucralfate (Sucralfate), 1 TAB PO Q8H Scheduled PRN Ipratropium/Albuterol Sulfate (IPRAT-ALBUT 0.5-3(2.5) MG/3 ML nebule), 3 ML NEB Q4H PRN for SOB or wheezing Past Medical History Past Medical History: Atrial Fibrillation, Congestive Heart Failure Past Surgical History: no surgical history Patient History: FH: heart disease Alcohol Use: None Drug Use: none Lives In: SNF Review of Systems ROS Reviewed in full. All negative except for pertinent positive HPI. Physical Exam Vital Signs: Temperature: 97.6, Source: Oral, Heart Rate: 76, Respiratory Rate: 13, BP: 99/53, Pulse Oximetry: 95, Weight: 59.090 Oxygen Flow Rate: 0 Physical Exam General: Awake and Alert, no acute distress. HEENT: Huge bruise on the right eye. Conjunctiva pink, Sclera clear, Mucus Membranes moist. Neck: Supple without masses and tenderness. Resp: Unlabored. Equal breath sounds bilaterally. Heart: Regular rhythm, normal S1 and S2, no rub, murmur or gallop. Abdomen: Nonreducible Umbilical hernia 5 x 5 cm. Abdomen soft nontender, normal bowel sounds x4. No guarding or rigidity noted. Extremities: Normal ROM, no swelling, nontender. No cyanosis,clubbing or edema. 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 Skin: Warm and Dry. Progress Results/Orders Results/Orders Vital Signs 06/29/25 06/29/25 06/29/25 06/29/25 13:32 13:32 13:40 13:41 Temp 97.6 Pulse 73 73 76 Resp 16 16 16 13 B/P (MAP) 146/50 146/50 (82) 99/53 (68) Pulse Ox 95 96 95 O2 Flow Rate 0 0 0 06/29/25 06/29/25 06/29/25 06/29/25 14:33 14:34 15:22 15:23 Pulse 72 73 70 75 Resp 14 15 17 B/P (MAP) 148/54 (85) 101/49 (66) 145/55 (85) 119/52 (74) Pulse Ox 97 97 97 98 O2 Flow Rate 0 0 0 0 06/29/25 06/29/25 06/29/25 06/29/25 16:00 16:30 17:00 17:31 Pulse 80 69 78 71 Resp 18 15 16 18 B/P (MAP) 126/44 (71) 115/56 (75) 130/57 (81) 121/65 (83) Pulse Ox 97 96 96 99 O2 Flow Rate 0 0 0 0 06/29/25 18:24 Pulse 80 Resp 16 B/P (MAP) 131/66 Pulse Ox 97 Laboratory Tests Test 06/29/25 13:38 06/29/25 15:56 06/29/25 16:57 White Blood Count 7.3 Red Blood Count 3.62 L Hemoglobin 10.3 L Hematocrit 30.7 L Mean Corpuscular Volume 84.8 Mean Corpuscular Hemoglobin 28.5 Mean Corpuscular Hemoglobin Concent 33.6 Red Cell Distribution Width 15.7 H Platelet Count 140 Mean Platelet Volume 9.4 Neutrophils (%) (Auto) 70.4 Lymphocytes (%) (Auto) 19.4 L Monocytes (%) (Auto) 7.7 Eosinophils (%) (Auto) 2.4 Basophils (%) (Auto) 0.1 Neutrophils # (Auto) 5.1 Lymphocytes # (Auto) 1.4 Monocytes # (Auto) 0.6 Eosinophils # (Auto) 0.2 Basophils # (Auto) 0.0 CBC Comment Prothrombin Time 10.5 INR International Normalized Ratio 1.0 Activated Partial Thromboplast Time 23 D-Dimer 1.34 H D-Dimer Comment Coagulation Comments Sodium Level 141 Potassium Level 4.6 Chloride Level 105 Carbon Dioxide Level 27.5 Anion Gap 9 Blood Urea Nitrogen 45 H Creatinine 2.39 H Estimated GFR/1.73 m2 19 BUN/Creatinine Ratio 18.8 Glucose Level 150 H Calcium Level 9.2 Troponin I High Sensitivity 10 11 10 Troponin I High Sens Percent Delta 16 10 9 Troponin I Hi Sens Absolute Change -2 1 -1 Pro-B-Type Natriuretic Peptide 1231 H Albumin 3.7 Chemistry Comments Medical Decision Making Additional information obtaine: other Findings Dizziness on sitting position, chest x-ray clear Awaiting labs EKG no ST/T-wave changes. Three set of serial troponins well within normal range. CBC and CMP at her baseline. Because of unequal blood pressure in the left and right upper extremity I ordered the vascular ultrasound of the upper extremity and the arterial flow is equal on both sides. Therefore the patient will be discharged from the emergency room with aftercare instructions. DISCLAIMER Inadvertent spelling and grammatical errors,inadvertent construction economist errors,syntax errors, grammatical errors, and spelling errors are likely due to EMR/dictation software use and do not reflect on the overall quality of patient care. Note that the electronic time recorded on this note does not necessarily reflect the actual time of the patient encounter. Sign out from who has patisulma mayo for stable discharge pending US vascular results. US tech provided me results satisfactory for safe discharge. "no occl usion" Differential Dx:Considerations: Include: anemia, dehydration, electrolyte imbalance, hypoglycemia, hypotension, hypovolemia Departure Disposition: 01 HOME / SELF CARE / HOMELESS Impression: Primary Impression: Dizziness Additional Impression: Chest pain, non-cardiac Condition: Stable Discharge Instructions: Dizziness Additional Instructions: Thank you for coming to our Emergency Department today. Whenever you change your body position such as standing up from sitting down or lying down or sitting up from lying position, please do slowly. Drink adequate amount of fluids to keep your self well hydrated and keep your urine color clear. Please ask your nurse or provider if you have questions about your care today and do not leave until all your questions have been answered. Please use any medications given as directed and follow-up with your doctor (or the doctor you were referred to) in the next 1-3 days. Your primary care doctor can help to coordinate outpatient specialty care and provide authorization for specialty referral as needed. If you do not have a primary care doctor you may follow up at a [facility]. You may also use motrin and tylenol as needed for fever and/or pain unless instructed otherwise by your provider or nurse. Indications for more urgent follow-up have been discussed, but you may return to the Emergency Department at ANY time for any worrisome or worsening symptoms. County Facilities: [facility] Facilities: [facility]: [facility] [place] Address:[address] [place] [address] [facility]: [place] Address:[address] [place] [address] [facility]: [facility] Address:[address] [place] [address] [facility] Address:[address] [place] [address] Registration Billing Pharmacy Referrals [facility] Address:[address] [place] [address] Referrals: NO PRIMARY CARE PROVIDER (PCP) Signature Scribe Signature: NA Attestation: MD ALEJO Boone ELIZABETH, RES Jun 29, 2025 14:36 SAW OSBORNE MD Jun 29, 2025 18:00 HEATH BRUCE Jun 30, 2025 12:02
--- NOTE | 2025-06-29 14:43 | ELECTROCARDIOGRAPH REPORT ---
[facility] Test Date: 2025-06-29 Test Time: 13:32:38 Pat Name: BECKA FERREIRA Department: EMERGENCY ROOM Room: Gender: F Service Line Layer: : 1940 Requested By: KEON DHILLON Order Number: [id number] Reading MD: Dr. Stoney Arellano Measurements Intervals [place] Rate: 71 P: 0 MA: 0 QRS: 62 QRSD: 94 T: 84 QT: 422 QTc: 459 Interpretive Statements Atrial fibrillation Probable anteroseptal infarct, old Electronically Signed On 06-29-2025 18:05:[address] Stoney Arellano Please click the below link to view image of tracing.
[2025-06-29 18:24] VITALS: BP 131/66; PULSE 80; RESP 16; O2SAT 97
--- NOTE | 2025-06-29 19:25 | VASCULAR REPORT ---
Bilateral lower extremity venous duplex Clinical History: Bilateral arm swelling Comparison: VASC VL VENOUS on DOS: 11/25/24, VASC VL VENOUS on DOS: 09/29/24 Technique: Duplex Doppler evaluation of the deep venous systems of both upper extremities from the common femoral veins to the popliteal veins including color Doppler and spectral/pulsed waveform analysis was performed. Findings: RIGHT SIDE: No thrombus is seen. Normal compressible veins with spontaneous respiratory phasic flow. LEFT SIDE: No thrombus is seen. Normal compressible veins with spontaneous respiratory phasic flow. Impression: No sonographic evidence of DVT.
--- NOTE | 2025-06-29 19:38 | VASCULAR REPORT ---
BILATERAL upper EXTREMITY ARTERIAL DOPPLER ULTRASOUND CLINICAL HISTORY: unEven blood pressure TECHNIQUE: Multiple grayscale, color Doppler and spectral Doppler ultrasound images were obtained of bilateral upper extremities for evaluation of the peripheral arteries. COMPARISON: None FINDINGS: The bilateral subclavian, axillary, brachial, radial, and ulnar veins were evaluated. Grayscale images demonstrate no significant atherosclerotic plaque. Right: Color doppler images demonstrate no visible stenosis or occlusion. Spectral analysis demonstrates normal, high-resistive blood flow. Systolic acceleration is normal. No significant change in velocity to suggest high-grade stenosis. Velocities: (in cm/sec) Subclavian artery: 155.1; axillary; 101; brachial: 83; radial: 85; ulnar: 83 Left: Color doppler images demonstrate no visible stenosis or occlusion. Spectral analysis demonstrates normal, high-resistive blood flow. Systolic acceleration is normal. No significant change in velocity to suggest high-grade stenosis. Velocities: (in cm/sec) Subclavian artery: 63.5-118.5; axillary; 60.2; brachial: 56.8; radial: 19.5; ulnar: 42.3 IMPRESSION: 1. No evidence of focal stenosis or significant arterial insufficiency in the interrogated bilateral upper extremities. 2. Of note the velocities are lower in the left arm compared to the right arm.
== END 2025-06-29 18:39 | disposition home or self-care (01) ==
LOC: ER 13:28
DX: R42 Dizziness and giddiness (principal); R07.9 Chest pain, unspecified; I48.91 Unspecified atrial fibrillation; I50.9 Heart failure, unspecified; Z88.8 Allergy status to other drugs, medicaments and biological substances; Z79.899 Other long term (current) drug therapy
CPT/HCPCS: 36415; 71045; 80048; 83880; 84484; 85025; 85379; 85610; 85730; 86885; 86900; 86901; 93005; 93930; 93970; 99285